=== PATIENT | male | born 1970 | race Hispanic/Latino ===

== ENCOUNTER 2020-11-08 13:49 | Emergency (ER) | payer SELFPAY ==
[2020-11-08] MEDS ORDERED: NA CHLORIDE 0.9% 1,000 ML ONE ×2 (14:54→18:27)
[2020-11-08 14:59] LABS: Absolute Lymphocytes (CBC) 1.9 K/uL (0.7-4.9); Basophils % 0.6 % (0-1.3); Hematocrit 51.3 % (39.6-49.0); Lymphocytes % 18.1 % (15.3-44.8); MPV 8.4 fL (7.6-11.3); RBC Red Blood Cell Count 5.42 M/uL (4.33-5.43)
[2020-11-08 15:12] LABS: Protime INR 1.01
--- NOTE | 2020-11-08 15:12 | RAD REPORT ---
EXAM DESCRIPTION: CT - Head Brain Wo Cont - 11/08/2020 2:56 pm CLINICAL HISTORY: Blurred vision COMPARISON: None TECHNIQUE: Computed axial tomography of the head was obtained. IV contrast was not requested. All CT scans are performed using dose optimization technique as appropriate and may include automated exposure control or mA/KV adjustment according to patient size. FINDINGS: An intracranial bleed is not seen . The ventricles are normal in caliber. No extra-axial fluid collection is noted. Some of the images are degraded by motion artifact. Opacification right maxillary sinus indicative of sinusitis IMPRESSION: No acute intracranial abnormality is seen. If patient's symptoms persist MRI of the bra in would be recommended.
--- NOTE | 2020-11-08 15:12 | RAD REPORT ---
EXAM DESCRIPTION: Marcelina Single View11/08/2020 3:01 pm CLINICAL HISTORY: Syncope COMPARISON: none FINDINGS: The lungs appear clear of acute infiltrate. The heart is normal size IMPRESSION: No acute abnormalities displayed
[2020-11-08 15:24] LABS: ALT/SGPT 47 U/L (12-78); AST/SGOT 51 U/L (15-37); Albumin 4.5 g/dL (3.4-5.0); Alkaline Phosphatase 137 U/L (45-117); BUN Blood Urea Nitrogen 14 mg/dL (7-18); Bicarbonate 21 mmol/L (21-32); Bilirubin Direct 0.2 mg/dL (0-0.2); Bilirubin Total 0.7 mg/dL (0.2-1.0); Creatine Phosphokinase 217 U/L (39-308); Glucose Level 103 mg/dL (74-106); Magnesium 2.2 mg/dL (1.8-2.4); NT PRO-BNP 38 pg/mL (<125); Potassium 3.4 mmol/L (3.5-5.1); Protein, Total 8.8 g/dL (6.4-8.2); Sodium Level 134 mmol/L (136-145); Troponin (Emerg Dept Use Only) < 0.02 ng/mL (0.0-0.045)
[2020-11-08] MEDS ORDERED: DIAZEPAM 10 MG/2 ML INJ SYRINGE ONE (17:24)
[2020-11-08] MEDS ORDERED: FLUORESCEIN SODIUM 1 MG/WRAP ONE (18:47)
--- NOTE | 2020-11-08 19:38 | RAD REPORT ---
EXAM DESCRIPTION: MRI - Brain Wo Cont - 11/08/2020 7:25 pm CLINICAL HISTORY: Blurred vision COMPARISON: Head CT November 08, 2020 TECHNIQUE: Axial, sagittal, and coronal magnetic images of the brain were obtained. Contrast was not requested FINDINGS: Some of the images are degraded by patient motion artifact No abnormal signal is present within the brain. Diffusion-weighted/ADC mapping does not reveal evidence of acute infarction. The ventricles are normal caliber. An extra-axial fluid collection is not present Signal throughout right maxillary sinus compatible with sinusitis. IMPRESSION: No acute intracranial abnormality is displayed
--- NOTE | 2020-11-08 20:23 | EDPHYS ---
Physician Documentation [facility] Name: Raheem Stanley Age: 50 yrs Sex: Male : 1970 Arrival Date: 11/08/2020 Time: 13:51 Bed 7 Private MD: ED Physician Seymour Gee HPI: 11/08 15:23 This 50 yrs old Male presents to ER via Wheelchair with complaints of Near jmm Syncope, Blurred Vision, Shortness Of Breath. 15:23 The patient has experienced near-syncope. Onset: The symptoms/episode began/occurred jmm acutely, just prior to arrival. Associated injury: The patient did not suffer any apparent associated injury. Patient complains of dizziness, blurred vision. 20:19 Associated signs and symptoms: Pertinent positives: dizziness, Pertinent negatives: jmm abdominal pain. Historical: - Allergies: 13:58 No Known Allergies; tw2 - Home Meds: 13:58 Bactrim DS 800-160 mg Oral tab 1 tab 4 times per day [Active]; tw2 - PMHx: 14:21 HIV; sv - PSHx: 13:58 None; tw2 - Immunization history:: Adult Immunizations. - Social history:: Smoking status: Patient reports the use of cigarette tobacco products, i cigarette, Patient uses alcohol, claims drinking about a 6 pack/day. street drugs, marijuana, "once every 2 days". ROS: 20:19 Constitutional: Negative for fever, chills, and weight loss, Cardiovascular: Negative jmm for chest pain, palpitations, and edema. 20:19 Respiratory: Positive for shortness of breath. 20:19 Neuro: Positive for dizziness. 20:19 All other systems are negative. Exam: 15:23 ECG was reviewed by the Attending Physician. jmm 20:19 Constitutional: This is a well developed, well nourished patient who is awake, alert, jmm and in no acute distress. Head/Face: atraumatic. Eyes: EOMI, no conjunctival erythema appreciated ENT: Moist Mucus Membranes 20:19 Neck: Trachea midline, Supple Chest/axilla: Normal chest wall appearance and motion. Cardiovascular: Regular rate and rhythm. No edema appreciated Respiratory: Normal respirations, no respiratory distress appreciated Abdomen/GI: Non distended, soft Back: Normal ROM Skin: General appearance color normal MS/ Extremity: Moves all extremities, no obvious deformities appreciated, no edema noted to the lower extremities Neuro: Awake and alert, normal gait Psych: Behavior is normal, Mood is normal, Patient is cooperative and pleasant 20:19 Eyes: Pupils: constricted, bilaterally. Vital Signs: 13:54 Pulse 118; Resp 17; Temp 98.3(O); Pulse Ox 97% on R/A; Weight 77.11 kg (R); tw2 14:21 BP 133 / 103; Pulse 109 MON; Resp 12; Pulse Ox 95% ; sv 14:49 BP 127 / 89; Pulse 97; Resp 20; Pulse Ox 100% ; sv 15:45 BP 124 / 93; Pulse 96; Resp 13; Pulse Ox 98% ; sv 16:30 BP 121 / 91; Pulse 90; Resp 15; Pulse Ox 97% ; sv 17:15 BP 123 / 84; Pulse 87; Resp 21; Pulse Ox 100% on R/A; sv 18:11 BP 115 / 90; Pulse 85; Resp 16; Pulse Ox 100% ; sv 20:09 BP 123 / 92; Pulse 89; Resp 18; Pulse Ox 100% on R/A; mg2 14:21 Sinus tachycardia sv MDM: 14:22 Patient medically screened. [facility] 20:20 Data reviewed: vital signs, nurses notes. Counseling: I had a detailed discussion with [facility] the patient and/or guardian regarding: the historical points, exam findings, and any diagnostic results supporting the discharge/admit diagnosis, lab results, radiology results, the need for outpatient follow up, to return to the emergency department if symptoms worsen or persist or if there are any questions or concerns that arise at home. ED course: Imaging studies, labs unremarkable. Patient states blurred vision has relieved. Patient advised to follow up with pcp and otherwise given strict return precautions. patient understood and agrees with the plan of care. . 11/08 14:32 Order name: Basic Metabolic Panel [facility] 11/08 14:32 Order name: CBC with Diff [facility] 11/08 14:32 Order name: LFT's [facility] 11/08 14:32 Order name: Magnesium [facility] 11/08 14:32 Order name: NT PRO-BNP [facility] 11/08 14:32 Order name: PT-INR; Complete Time: 15:14 [facility] 11/08 14:32 Order name: Troponin (emerg Dept Use Only); Complete Time: 15:24 [facility]/04 14:32 Order name: CPK; Complete Time: 15:24 jmm 11/08 14:32 Order name: Basic Metabolic Panel; Complete Time: 15:24 EDMS 11/08 14:32 Order name: CBC with Automated Diff; Complete Time: 15:12 EDMS 11/08 14:32 Order name: Liver (Hepatic) Function; Complete Time: 15:24 EDMS 11/08 14:32 Order name: Magnesium; Complete Time: 15:24 EDMS 11/08 14:33 Order name: NT PRO-BNP; Complete Time: 15:24 EDMS 11/08 14:32 Order name: XRAY Chest (1 view); Complete Time: 15:13 jmm 11/08 14:32 Order name: EKG; Complete Time: 14:33 m 11/08 14:32 Order name: Cardiac monitoring; Complete Time: 14:48 jmm 11/08 14:32 Order name: EKG - Nurse/Tech; Complete Time: 14:48 m 11/08 14:32 Order name: IV Saline Lock; Complete Time: 14:48 m 11/08 14:32 Order name: Labs collected and sent; Complete Time: 14:48 jmm 11/08 14:32 Order name: O2 Per Protocol; Complete Time: 14:48 jmm 11/08 14:32 Order name: O2 Sat Monitoring; Complete Time: 14:48 m 04 14:32 Order name: CT Head Brain wo Cont; Complete Time: 15:13 m 04 16:05 Order name: MRI - Brain Wo Cont; Complete Time: 19:40 jmm EC:23 Rate is 98 beats/min. Rhythm is regular. QRS [place] is Normal. NC interval is normal. QRS jmm interval is normal. QT interval is normal. No Q waves. T waves are Normal. No ST changes noted. Reviewed by me. Administered Medications: 14:40 Drug: NS 0.9% 1000 ml Route: IV; Rate: 1 bolus; Site: right forearm; sv 17:11 Drug: Valium (diazepam) 5 mg Route: IVP; Site: right forearm; sv 18:10 Follow up: Response: No adverse reaction sv 18:10 Drug: NS 0.9% 1000 ml Route: IV; Rate: 1000 ml; Site: right forearm; sv 20:20 Follow up: Response: No adverse reaction; IV Status: Completed infusion; IV Intake: ad5 1000ml 18:30 Drug: Fluorescein Strip 1 strip {Note: given to Damien [facility] for eye exam.} Route: sv Ophthalmic; Site: both eyes; Disposition: 11/09 11:23 Co-signature as Attending Physician, Seymour Gee MD I agree with the assessment and [facility] plan of care. Disposition: 11/08/20 20:23 Discharged to Home. Impression: Syncope and collapse. - Condition is Stable. - Discharge Instructions: Blurred Vision, Adult, Syncope. - Medication Reconciliation Form, Thank You Letter, Antibiotic Education, Prescription Opioid Use form. - Follow up: Private Physician; When: 2 - 3 days; Reason: Recheck today's complaints, Continuance of care, Re-evaluation by your physician. Signatures: Dispatcher [employer] Apryl Stephens RN Seymour Carr MD MD cha Mickail, Joel, PA PA jmm Wise, Tara RN RN 2 Amilcar [place] ad5 Corrections: (The following items were deleted from the chart) 11/08 14:21 13:58 PMHx: None; tw2 20:32 20:23 11/08/2020 20:23 Discharged to Home. Impression: Syncope and collapse. Condition ad5 is Stable. Forms are Medication Reconciliation Form, Thank You Letter, Antibiotic Education, Prescription Opioid Use. Follow up: Private Physician; When: 2 - 3 days; Reason: Recheck today's complaints, Continuance of care, Re-evaluation by your physician. scott
--- NOTE | 2020-11-08 20:23 | ER ---
Nurse's Notes [facility] Name: Raheem Stanley Age: 50 yrs Sex: Male : 1970 Arrival Date: 11/08/2020 Time: 13:51 Bed 7 Private MD: Diagnosis: Syncope and collapse Presentation: 11/08 13:54 Chief complaint: Patient states: i started hurting after i tried to pull a tooth out. 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 he said he was having trouble with his vision on the way here. he said he was having trouble with a tooth and tried to pull it out. Coronavirus screen: nausea. Ebola Screen: Patient denies travel to an Ebola-affected area in the 21 days before illness onset. Initial Sepsis Screen: Does the patient meet any 2 criteria? No. Patient's initial sepsis screen is negative. Does the patient have a suspected source of infection? Yes: Other: tooth infection. Risk Assessment: Do you want to hurt yourself or someone else? Patient reports no desire to harm self or others. Onset of symptoms was November 08, 2020. 13:54 Method Of Arrival: Wheelchair tw2 13:54 Acuity: ESTER 2 tw2 Triage Assessment: 13:58 General: Appears uncomfortable, unkempt, Behavior is cooperative, appropriate for age, tw2 quiet. Pain: Complains of pain in right buccal mucosa. Respiratory: Reports shortness of breath "after being in the heat and i tried to pull 2 teeth out and they broke off" Onset: The symptoms/episode began/occurred suddenly, the patient has mild shortness of breath. Historical: - Allergies: 13:58 No Known Allergies; tw2 - Home Meds: 13:58 Bactrim DS 800-160 mg Oral tab 1 tab 4 times per day [Active]; tw2 - PMHx: 14:21 HIV; sv - PSHx: 13:58 None; tw2 - Immunization history:: Adult Immunizations. - Social history:: Smoking status: Patient reports the use of cigarette tobacco products, i cigarette, Patient uses alcohol, claims drinking about a 6 pack/day. street drugs, marijuana, "once every 2 days". Screenin:21 Abuse screen: Denies threats or abuse. Denies injuries from another. Nutritional sv screening: No deficits noted. Tuberculosis screening: No symptoms or risk factors identified. Fall Risk None identified. Assessment: 14:23 General: Appears in no apparent distress. uncomfortable, slender, well developed, sv Behavior is calm, cooperative, appropriate for age. Pain: Complains of pain in mouth Pain currently is 8 out of 10 on a pain scale. Neuro: Level of Consciousness is awake, alert, obeys commands, Oriented to person, place, time, situation, Moves all extremities. Full function Gait is steady, Speech is normal, Reports blurred vision dizziness. Cardiovascular: Patient's skin is warm and dry. Rhythm is sinus tachycardia. Respiratory: Reports shortness of breath Airway is patent Respiratory effort is even, unlabored, Respiratory pattern is regular, symmetrical. Derm: Skin is pink, warm \\T\\ dry. 14:40 Reassessment: Patient appears in no apparent distress at this time. No changes from sv previously documented assessment. Patient and/or family updated on plan of care and expected duration. Pain level reassessed. Patient is alert, oriented x 3, equal unlabored respirations, skin warm/dry/pink. 16:38 Reassessment: Patient appears in no apparent distress at this time. No changes from sv previously documented assessment. Patient and/or family updated on plan of care and expected duration. Pain level reassessed. Patient is alert, oriented x 3, equal unlabored respirations, skin warm/dry/pink. Pt asked to give a urine sample, unable to give one at this time. 16:45 Reassessment: I called MRI and they will get him in about an hour and a half. sv 18:10 Reassessment: Patient appears in no apparent distress at this time. Patient and/or sv family updated on plan of care and expected duration. Pain level reassessed. Patient is alert, oriented x 3, equal unlabored respirations, skin warm/dry/pink. Pt asked to give a urine sample, unable to at this time. NS 1L bolus started. 19:16 Reassessment: patient still in MRI. mg2 20:09 Reassessment: Patient appears in no apparent distress at this time. Patient and/or mg2 family updated on plan of care and expected duration. Pain level reassessed. Patient is alert, oriented x 3, equal unlabored respirations, skin warm/dry/pink. 20:28 Reassessment: Pt denies new or worsening c/o. Reports improvement in s/s at this time. ad5 Denies pain. AAOx4. Speech clear and appropriate. Resp with ease. Skin pwd, cap refill brisk. Friend at bedside. NAD noted upon discharge. Vital Signs: 13:54 Pulse 118; Resp 17; Temp 98.3(O); Pulse Ox 97% on R/A; Weight 77.11 kg (R); tw2 14:21 BP 133 / 103; Pulse 109 MON; Resp 12; Pulse Ox 95% ; sv 14:49 BP 127 / 89; Pulse 97; Resp 20; Pulse Ox 100% ; sv 15:45 BP 124 / 93; Pulse 96; Resp 13; Pulse Ox 98% ; sv 16:30 BP 121 / 91; Pulse 90; Resp 15; Pulse Ox 97% ; sv 17:15 BP 123 / 84; Pulse 87; Resp 21; Pulse Ox 100% on R/A; sv 18:11 BP 115 / 90; Pulse 85; Resp 16; Pulse Ox 100% ; sv 20:09 BP 123 / 92; Pulse 89; Resp 18; Pulse Ox 100% on R/A; mg2 14:21 Sinus tachycardia sv ED Course: 13:51 Patient arrived in ED. as 13:56 Triage completed. tw2 13:58 Arm band placed on. tw2 14:11 Damien Bell PA is PHCP. [facility] 14:11 Seymour Gee MD is Attending Physician. [facility] 14:17 Apryl Reyes, FORTINO is Primary Nurse. sv 14:21 Patient has correct armband on for positive identification. Placed in gown. Bed in low sv position. Call light in reach. monitoring tech on. Pulse ox on. NIBP on. Door closed. Head of bed elevated. 14:40 Inserted saline lock: 18 gauge in right forearm, using aseptic technique. Blood sv collected. Flushed right forearm with 5 ml normal saline. 14:48 Basic Metabolic Panel Sent. sv 14:48 CBC with Diff Sent. sv 14:48 LFT's Sent. sv 14:49 Magnesium Sent. sv 14:49 NT PRO-BNP Sent. sv 14:49 X-ray(s) taken. sv 14:56 CT Head Brain wo Cont In Process Unspecified. EDMS 15:01 XRAY Chest (1 view) In Process Unspecified. EDMS 18:24 Awaiting: MRI. sv 18:31 Assist provider with eye exam of both eyes. using fluorescein stain, Performed by Damien [facility] Patient tolerated well. 19:03 Report given to Chandra FREITAS and Julissa FREITAS. sv 19:05 MRI - Brain Wo Cont In Process Unspecified. EDMS 19:10 Primary Nurse role handed off by Apryl Reyes RN sv 20:09 Chandra Clarke, RN is Primary Nurse. mg2 20:30 IV discontinued, intact, bleeding controlled, No redness/swelling at site. Pressure ad5 dressing applied. Administered Medications: 14:40 Drug: NS 0.9% 1000 ml Route: IV; Rate: 1 bolus; Site: right forearm; sv 17:11 Drug: Valium (diazepam) 5 mg Route: IVP; Site: right forearm; sv 18:10 Follow up: Response: No adverse reaction sv 18:10 Drug: NS 0.9% 1000 ml Route: IV; Rate: 1000 ml; Site: right forearm; sv 20:20 Follow up: Response: No adverse reaction; IV Status: Completed infusion; IV Intake: ad5 1000ml 18:30 Drug: Fluorescein Strip 1 strip {Note: given to Damien [facility] for eye exam.} Route: sv Ophthalmic; Site: both eyes; Intake: 20:20 IV: 1000ml; Total: 1000ml. ad5 Outcome: 20:23 Discharge ordered by . alexsandra 20:29 Discharged to home ambulatory, with friend. ad5 20:29 Condition: stable 20:29 Discharge instructions given to patient, Instructed on discharge instructions, follow up and referral plans. Demonstrated understanding of instructions, follow-up care. 20:32 Patient left the ED. ad5 Signatures: Dispatcher [employer] EDMS Apryl Reyes RN RN sv Mickail, Joel, PA PA jmm Martinez, Amelia as Wise, Tara, RN RN tw2 Chandra Clarke, FORTINO RN Amilcar Day ad5 Corrections: (The following items were deleted from the chart) 14:21 13:58 PMHx: None; tw2
[2020-11-08 20:44] VITALS: TEMP 98.3
[2020-11-08 20:50] VITALS: O2SAT 100
[2020-11-08 20:53] VITALS: BP 123/92
--- NOTE | 2020-11-10 07:24 | EKG ---
Test Date: 2020-11-08 Test Time: 14:39:30 Gasoline Service Attendant: SV MEASUREMENT RESULTS: Intervals: Rate: 98 TX: 164 QRSD: 84 QT: 364 QTc: 464 Cameron: P: 63 TX: 164 QRS: 57 T: 49 INTERPRETIVE STATEMENTS: Normal sinus rhythm Normal ECG No previous ECG available for comparison Electronically Signed On 11-10-20 07:18:41 CDT by Solitario Stcak
== END 2020-11-08 20:32 | disposition home or self-care (01) ==
LOC: ER 13:49
DX: R55 Syncope and collapse (principal); F17.210 Nicotine dependence, cigarettes, uncomplicated; Z21 Asymptomatic human immunodeficiency virus [HIV] infection status
CPT/HCPCS: 36415; 70450; 70551; 71045; 80048; 80076; 82550; 83735; 83880; 84484; 85025; 85610; 93005; 96361; 96374; 99285; J3360; J7030

== ENCOUNTER 2021-05-16 15:01 | Emergency (ER) | payer SELFPAY ==
[2021-05-16] MEDS ORDERED: GLUCAGON 1 MG/VIAL ONE (15:06)
[2021-05-16] MEDS ORDERED: ONDANSETRON 4 MG/2 ML VIAL ONE (15:13)
[2021-05-16 15:23] LABS: Absolute Lymphocytes (CBC) 1.9 K/uL (0.7-4.9); Basophils % 0.9 % (0-1.3); Lymphocytes % 25.8 % (15.3-44.8); MPV 7.6 fL (7.6-11.3); RBC Red Blood Cell Count 5.01 M/uL (4.33-5.43)
[2021-05-16 15:54] LABS: ALT/SGPT 23 U/L (12-78); AST/SGOT 29 U/L (15-37); Albumin 3.9 g/dL (3.4-5.0); Alkaline Phosphatase 139 U/L (45-117); BUN Blood Urea Nitrogen 8 mg/dL (7-18); Bicarbonate 24 mmol/L (21-32); Bilirubin Direct < 0.1 mg/dL (0-0.2); Bilirubin Total 0.4 mg/dL (0.2-1.0); Glucose Level 97 mg/dL (74-106); Lipase 60 U/L (73-393); Potassium 3.8 mmol/L (3.5-5.1); Sodium Level 139 mmol/L (136-145)
--- NOTE | 2021-05-16 17:07 | RAD REPORT ---
EXAM DESCRIPTION: CT - Soft Tissue Neck W/Contr - 05/16/2021 4:36 pm CLINICAL HISTORY: FORIEGN BODY COMPARISON: No comparisons TECHNIQUE: During dynamic enhancement using 100 milliliters nonionic IV contrast, axial 5 millimeter thick images of the neck were obtained. All CT scans are performed using dose optimization technique as appropriate and may include automated exposure control or mA/KV adjustment according to patient size. FINDINGS: Intracranial portion the examination is unremarkable. Mastoid air cells are clear. Chronic right maxillary sinusitis changes are present. There is a irregular contour to the weaver of t he maxillary sinus on the right. Patient has advanced dental decay with areas of lucent bone and twos decay in proximity to the right maxillary sinus floor in addition to elsewhere in the mandible and m axilla. No kendrick bone destruction or communication between the teeth and sinus. Patient has nonspecif ic small bilateral cervical lymph nodes. No pharyngeal mucosal mass or asymmetry. No tonsil, tongue base or soft palate abnormality. Epiglotti s is normal. No vocal cord abnormality seen. There is ingested food filling the upper thoracic esophagus only partially visualized on this study. This is probably the symptomatic ingested food detailed in the history. No abnormality in the subglot tic airway. 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 No acute bone finding. IMPRESSION: Ingested food material fills the lumen of the upper thoracic esophagus. The esophagus is only partially imaged on this study. No abnormality in the subglottic airway. Advanced dental decay with chronic right maxillary sinusitis. There is irregular contour to the bone along the floor of the right maxillary sinus but no kendrick destruction of bone or communication betwee n the sinus and the teeth.
--- NOTE | 2021-05-16 17:13 | EDPHYS ---
Physician Documentation [facility] Name: Raheem Stanley Age: 50 yrs Sex: Male : 1970 Arrival Date: 05/16/2021 Time: 15:02 Bed 6 Private MD: ED Physician Aron Grullon HPI: 05/16 15:07 This 50 yrs old Male presents to ER via Ambulatory with complaints of Foreign jmm Body In Throat. 15:07 The patient presents with a foreign body sensation in the throat. Onset: The jmm symptoms/episode began/occurred acutely, just prior to arrival. Modifying factors: The symptoms are alleviated by nothing, the symptoms are aggravated by fluids. Associated signs and symptoms: Pertinent positives: shortness of breath. This is a 50-year-old male with history of HIV the presents emerged department with vomiting, difficulty in taking fluids after eating a piece of meat. This occurred just prior to arrival.. Historical: - Allergies: 15:05 No Known Allergies; aa5 - PMHx: 15:05 HIV; aa5 - Immunization history:: Client reports having NOT received the Covid vaccine. - Social history:: Smoking status: Patient denies any tobacco usage or history of. ROS: 15:07 Constitutional: Negative for fever, chills, and weight loss. jmm 15:07 ENT: Positive for foreign body sensation. 15:07 Abdomen/GI: Positive for vomiting. 15:07 All other systems are negative. Exam: 15:07 Constitutional: This is a well developed, well nourished patient who is awake, alert, jmm and in no acute distress. Head/Face: atraumatic. Eyes: EOMI, no conjunctival erythema appreciated 15:07 Chest/axilla: Normal chest wall appearance and motion. Cardiovascular: Regular rate and rhythm. No edema appreciated Respiratory: Normal respirations, no respiratory distress appreciated Abdomen/GI: Non distended, soft Back: Normal ROM Skin: General appearance color normal MS/ Extremity: Moves all extremities, no obvious deformities appreciated, no edema noted to the lower extremities Neuro: Awake and alert, normal gait Psych: Behavior is normal, Mood is normal, Patient is cooperative and pleasant 15:07 ENT: Posterior pharynx: is normal. Vital Signs: 15:19 BP 145 / 96; Pulse 77; Resp 17; Temp 97.8; Pulse Ox 100% on R/A; jt3 17:37 BP 148 / 91; Pulse 79; Resp 16; Pulse Ox 100% ; ll1 MDM: 15:07 Patient medically screened. [facility] 16:23 Data reviewed: vital signs, nurses notes. ED course: Attempted to contact Dr. Hall at [facility] 1530, 1600, and 1620. Currently no response. 17:10 Counseling: I had a detailed discussion with the patient and/or guardian regarding: the [facility] historical points, exam findings, and any diagnostic results supporting the discharge/admit diagnosis, lab results, the need for outpatient follow up, to return to the emergency department if symptoms worsen or persist or if there are any questions or concerns that arise at home. ED course: States feeling much better. Able to tolerate p.o. in the ED. Advised follow-up with PCP and otherwise given strict return precautions if symptoms return.. 05/16 15:07 Order name: Basic Metabolic Panel [facility] 05/16 15:07 Order name: CBC with Diff [facility] 05/16 15:07 Order name: Hepatic Function; Complete Time: 16:00 [facility] 05/16 15:07 Order name: Lipase; Complete Time: 16:00 [facility] 05/16 15:07 Order name: Basic Metabolic Panel; Complete Time: 16:00 [facility] 05/16 15:07 Order name: CBC with Automated Diff; Complete Time: 15:32 [facility] 05/16 15:07 Order name: IV Saline Lock; Complete Time: 15:09 [facility] 05/16 15:07 Order name: Labs collected and sent; Complete Time: 15:10 [facility] 05/16 15:08 Order name: CT Soft Tissue Neck W/contr; Complete Time: 17:12 [facility] Administered Medications: 15:10 Drug: GlucaGen (glucagon) 1 mg Route: IVP; Site: right antecubital; jt3 16:07 Follow up: Response: No adverse reaction ll1 15:19 Drug: Zofran (Ondansetron) 4 mg Route: IVP; Site: right antecubital; jt3 16:07 Follow up: Response: No adverse reaction ll1 Disposition: 17:40 Co-signature as Attending Physician, Aron Grullon MD. pkl Disposition Summary: 05/16/21 17:12 Discharge Ordered Location: Home [facility] Condition: Stable [facility] Diagnosis - Foreign Body Sensation of the Throat - Resolved [facility] Followup: [facility] - With: Harley Hall MD - When: 2 - 3 days - Reason: Recheck today's complaints, Continuance of care, Re-evaluation by your physician Discharge Instructions: - Discharge Summary Sheet [facility] - Swallowed Foreign Body, Adult [facility] Forms: - Medication Reconciliation Form [facility] - Thank You Letter [facility] - Antibiotic Education alexsandra - Prescription Opioid Use alexsandra Signatures: Dispatcher [employer] Aron Aggarwal MD MD pkl Mickail, Joel, PA PA Donna Aguirre, RN RN aa5 Frank Patel RN RN jt3 Jackie Sahu RN ll1
--- NOTE | 2021-05-16 17:13 | ER ---
Nurse's Notes 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 15:04 Risk Assessment: Do you want to hurt yourself or someone else? Patient reports no aa5 desire to harm self or others. 15:04 Acuity: ESTER 2 aa5 15:04 Coronavirus screen: At this time, the client does not indicate any symptoms associated aa5 with coronavirus-19. Ebola Screen: No symptoms or risks identified at this time. 15:04 Method Of Arrival: Ambulatory aa5 15:04 Onset of symptoms was May 16, 2021. aa5 17:38 Initial Sepsis Screen: Does the patient meet any 2 criteria? No. Patient's initial ll1 sepsis screen is negative. Does the patient have a suspected source of infection? Yes: Other: food bolus in throat. Triage Assessment: 15:05 General: Appears distressed, Behavior is cooperative, appropriate for age. Pain: ll1 Complains of pain in throat Quality of pain is described as aching. Neuro: No deficits noted. Cardiovascular: No deficits noted. Respiratory: Airway is compromised Trachea midline Respiratory effort is labored, Respiratory pattern is regular, Breath sounds are clear bilaterally. GI: Abdomen is flat, Bowel sounds present X 4 quads. Reports food bolus (meat) stuck in throat area. Talking and breathing on his own, but trying to vomit. Historical: - Allergies: 15:05 No Known Allergies; aa5 - PMHx: 15:05 HIV; aa5 - Immunization history:: Client reports having NOT received the Covid vaccine. - Social history:: Smoking status: Patient denies any tobacco usage or history of. Screenin:38 Abuse screen: Denies threats or abuse. Nutritional screening: No deficits noted. ll1 Tuberculosis screening: No symptoms or risk factors identified. Fall Risk IV access (20 points). Gait- Weak (10 pts.). Total Fernandez Fall Scale indicates Low Risk Score (25-44 pts). Fall prevention measures have been instituted. Side Rails Up X 2 Frequent Obs/Assesments occuring As available Patient and Family Educated on Fall Prevention Program and strategies. Assessment: 16:00 Reassessment: No changes from previously documented assessment. Patient and/or family ll1 updated on plan of care and expected duration. Pain level reassessed. Patient is alert, oriented x 3, equal unlabored respirations, skin warm/dry/pink. 17:00 Reassessment: No changes from previously documented assessment. Patient and/or family ll1 updated on plan of care and expected duration. Pain level reassessed. Patient is alert, oriented x 3, equal unlabored respirations, skin warm/dry/pink. Patient states feeling better. Vital Signs: 15:19 BP 145 / 96; Pulse 77; Resp 17; Temp 97.8; Pulse Ox 100% on R/A; jt3 17:37 BP 148 / 91; Pulse 79; Resp 16; Pulse Ox 100% ; ll1 ED Course: 15:02 Patient arrived in ED. mr 15:06 Jackie Sahu, FORTINO is Primary Nurse. ll1 15:06 Damien Bell PA is PHCP. jmm 15:06 Aron Grullon MD is Attending Physician. m 15:06 Arm band placed on Patient placed in an exam room, on a stretcher. ll1 15:09 Triage completed. aa5 15:14 Initial lab(s) drawn, by mn, sent to lab. Inserted saline lock: 20 gauge in right em1 antecubital area, using aseptic technique. Blood collected. 16:00 Patient has correct armband on for positive identification. Bed in low position. Call ll1 light in reach. Side rails up X 1. conveyor monitor on. Pulse ox on. NIBP on. 16:36 CT Soft Tissue Neck W/contr In Process Unspecified. EDMS 17:11 Harley Hall MD is Referral Physician. [place] 17:37 No provider procedures requiring assistance completed. IV discontinued, intact, ll1 bleeding controlled, No redness/swelling at site. Pressure dressing applied. Administered Medications: 15:10 Drug: GlucaGen (glucagon) 1 mg Route: IVP; Site: right antecubital; jt3 16:07 Follow up: Response: No adverse reaction 1 15:19 Drug: Zofran (Ondansetron) 4 mg Route: IVP; Site: right antecubital; jt3 16:07 Follow up: Response: No adverse reaction 1 Outcome: 17:12 Discharge ordered by . scott 17:38 Discharged to home ambulatory. 1 17:38 Condition: stable 17:38 Discharge instructions given to patient, Instructed on discharge instructions, follow up and referral plans. Demonstrated understanding of instructions, follow-up care. 17:39 Patient left the ED. 1 Signatures: Dispatcher [employer] EDMS Damien Bell PA PA jmm Neri, Velvet Gandhi, Jay em1 Donna Pearl, RN RN aa5 Jackie Sahu RN RN ll1 Frank Patel RN RN jt3
[2021-05-16 17:54] VITALS: TEMP 97.8; O2SAT 100
[2021-05-16 17:55] VITALS: BP 148/91
--- OUTSIDE RECORDS SUMMARY | 2021-05-20 18:15 | XMS REPORT | Continuity of Care Document ---
:1970 Author Organization [facility] t Address [facility] [place] [address] Care Team Providers Name Role Phone RADIOLOGY Attending Clinician Unavailable Problems This patient has no known problems. Allergies, Adverse Reactions, Alerts Allergy Allergy Status Severity Reaction(s) Onset Inactive Treating Comm ents Source Name Type Date Date Clinician NO KNOWN Drug Active [facility] ALLERGIE Class [facility] Medications This patient has no known medications. Procedures This patient has no known procedures. Encounters Start End Encounter Admission Attending Care Care Encounter Source Date/Time Date/Time Type Type Clinicians Facility Department ID 2019-12-02 2019-12-02 Outpatient R RADIOLOGY [facility] [id number] [facility] 12:40:06 12:40:06 [facility] Results This patient has no known results.
== END 2021-05-16 17:39 | disposition home or self-care (01) ==
LOC: ER 15:01
DX: R09.89 Other specified symptoms and signs involving the circulatory and respiratory systems (principal)
CPT/HCPCS: 36415; 70491; 80048; 80076; 83690; 85025; 96374; 96375; 99284; J1610; J2405; Q9967

== ENCOUNTER 2021-05-17 12:02 | Inpatient (IN) | payer SELFPAY ==
--- NOTE | 2021-05-17 13:01 | EDPHYS ---
Physician Documentation [facility] Name: Raheem Stanley Age: 50 yrs Sex: Male : 1970 Arrival Date: 05/17/2021 Time: 12:04 Bed 25 Private MD: ED Physician Wan Myers HPI: 05/17 12:56 This 50 yrs old Male presents to ER via Ambulatory with complaints of ma2 Choked/Choking. 12:56 This 50 yrs old Male presents to ER via Ambulatory with complaints of ma2 dysphagia, can not swallow . 12:56 The patient presents to the emergency department with nausea, vomiting. Onset: The ma2 symptoms/episode began/occurred suddenly, 1 day(s) ago. Possible causes: Patient is vomiting, unable to swallow since yesterday he had food bolus impaction obstruction in the esophagus, this happened yesterday he presented to the ER CT showed food bolus esophageal obstruction, however he wanted to go home and wait to see if it passed. However he is still unable to swallow solids or liquid so decided to present to the ER again. Associated signs and symptoms: Pertinent negatives: belching, dysuria, flatulence, hematuria. Severity of symptoms: At their worst the symptoms were moderate in the emergency department the symptoms are unchanged. The patient has not experienced similar symptoms in the past. Historical: - Allergies: 12:27 No Known Allergies; vg1 - Home Meds: 12:27 HIV medication [Active]; vg1 - PMHx: 12:27 HIV; vg1 - Immunization history:: Client reports having NOT received the Covid vaccine. - Social history:: Smoking status: Patient reports the use of cigarette tobacco products, 2 cigarettes/ day, Patient/guardian denies using alcohol, street drugs, The patient lives with family. - Family history:: not pertinent. ROS: 12:56 Constitutional: Negative for fever, chills, and weight loss. ma2 12:56 All other systems are negative. Exam: 12:56 Constitutional: This is a well developed, well nourished patient who is awake, alert, ma2 and in no acute distress. Head/Face: Normocephalic, atraumatic. Eyes: Pupils equal round and reactive to light, extra-ocular motions intact. Lids and lashes normal. Conjunctiva and sclera are non-icteric and not injected. Cornea within normal limits. Periorbital areas with no swelling, redness, or edema. ENT: Nares patent. No nasal discharge, no septal abnormalities noted. Tympanic membranes are normal and external auditory canals are clear. Oropharynx with no redness, swelling, or masses, exudates, or evidence of obstruction, uvula midline. Mucous membranes moist. Neck: Trachea midline, no thyromegaly or masses palpated, and no cervical lymphadenopathy. Supple, full range of motion without nuchal rigidity, or vertebral point tenderness. No Meningismus. Chest/axilla: Normal chest wall appearance and motion. Nontender with no deformity. No lesions are appreciated. Cardiovascular: Regular rate and rhythm with a normal S1 and S2. No gallops, murmurs, or rubs. Normal PMI, no JVD. No pulse deficits. Respiratory: Lungs have equal breath sounds bilaterally, clear to auscultation and percussion. No rales, rhonchi or wheezes noted. No increased work of breathing, no retractions or nasal flaring. Abdomen/GI: Soft, non-tender, with normal bowel sounds. No distension or tympany. No guarding or rebound. No evidence of tenderness throughout. Back: No spinal tenderness. No costovertebral tenderness. Full range of motion. Skin: Warm, dry with normal turgor. Normal color with no rashes, no lesions, and no evidence of cellulitis. MS/ Extremity: Pulses equal, no cyanosis. Neurovascular intact. Full, normal range of motion. Neuro: Awake and alert, GCS 15, oriented to person, place, time, and situation. Cranial nerves II-XII grossly intact. Motor strength 5/5 in all extremities. Sensory grossly intact. Cerebellar exam normal. Normal gait. Vital Signs: 12:25 BP 133 / 102; Pulse 75; Resp 16; Temp 97.5; Pulse Ox 100% ; Weight 77.11 kg; Height 5 vg1 ft. 9 in. (175.26 cm); Pain 0/10; 12:57 BP 129 / 99; Pulse 71; Resp 18; Pulse Ox 100% on R/A; ld1 12:25 Body Mass Index 25.10 (77.11 kg, 175.26 cm) vg1 MDM: 12:31 Patient medically screened. ma2 12:56 Differential diagnosis: Esophageal foreign body obstruction, likely food bolus. I ma2 discussed with Dr. Shashi MAY and he accepted, will see the patient, he recommends to discuss with the data warehouse consultant for OR today. Data reviewed: vital signs, nurses notes. Counseling: I had a detailed discussion with the patient and/or guardian regarding: the historical points, exam findings, and any diagnostic results supporting the discharge/admit diagnosis, the presence of at least one elevated blood pressure reading (>120/80) during this emergency department visit, the need for further work-up and treatment in the hospital. Response to treatment: There is no appreciated change of the patient's symptoms at this time. 05/17 13:01 Order name: Basic Metabolic Panel [facility] 05/17 13:01 Order name: CBC with Diff [facility] 05/17 13:01 Order name: Hepatic Function [facility] 05/17 13:01 Order name: Lipase [facility] 05/17 13:01 Order name: PT-INR [facility] 05/17 13:01 Order name: COVID-19 SARS RT PCR (Document "Date of Onset" if Symptomatic) [facility] 05/17 13:01 Order name: IV Saline Lock; Complete Time: 13:26 pa2 05/17 13:01 Order name: Labs collected and sent; Complete Time: 13:26 ma2 Administered Medications: No medications were administered Disposition Summary: 05/17/21 13:00 Hospitalization Ordered Hospitalization Status: Inpatient Admission pa2 Provider: Harley Hall Condition: Stable ma2 Problem: new ma2 Symptoms: are unchanged ma2 Bed/Room Type: Standard [facility] Location: Telemetry/MedSurg (observation)(05/17/21 13:42) bd Room Assignment: (05/17/21 13:42) bd Diagnosis - Foreign body in esophagus ma2 Forms: - Medication Reconciliation Form ma2 - SBAR form ma2 Signatures: Dispatcher [employer] EDMS Letitia Jimenez Mohammad, MD MD ma2 Shaista Ortiz, RN RN vg1 Corrections: (The following items were deleted from the chart) 13:03 13:01 SARS-COV-2 RT PCR+MOL.LAB.BRZ ordered. EDMS EDMS 13:42 13:00 Operating Room ma2 bd 13:42 13:00 ma2 bd
--- NOTE | 2021-05-17 13:01 | ER ---
Nurse's Notes [facility] Name: Raheem Stanley Age: 50 yrs Sex: Male : 1970 Arrival Date: 05/17/2021 Time: 12:04 Bed 25 Private MD: Diagnosis: Foreign body in esophagus Presentation: 05/17 12:25 Chief complaint: Patient states: Pt was seen in ED yesterday for a piece of meat that vg1 was stuck in pt throat. States today is having trouble eating or drinking anything; states 'every time I try to drink something it comes right back up.'. Coronavirus screen: Vaccine status: Patient reports being unvaccinated. Client denies travel out of the [place] in the last 14 days. Ebola Screen: Patient negative for fever greater than or equal to 101.5 degrees Fahrenheit, and additional compatible Ebola Virus Disease symptoms. Initial Sepsis Screen: Does the patient meet any 2 criteria? No. Patient's initial sepsis screen is negative. Does the patient have a suspected source of infection? No. Patient's initial sepsis screen is negative. Risk Assessment: Do you want to hurt yourself or someone else? Patient reports no desire to harm self or others. Onset of symptoms was May 16, 2021. 12:25 Method Of Arrival: Ambulatory vg1 12:25 Acuity: ESTER 3 vg1 Triage Assessment: 12:27 General: Appears in no apparent distress. uncomfortable, Behavior is calm, cooperative. vg1 Pain: Denies pain. Historical: - Allergies: 12:27 No Known Allergies; vg1 - Home Meds: 12:27 HIV medication [Active]; vg1 - PMHx: 12:27 HIV; vg1 - Immunization history:: Client reports having NOT received the Covid vaccine. - Social history:: Smoking status: Patient reports the use of cigarette tobacco products, 2 cigarettes/ day, Patient/guardian denies using alcohol, street drugs, The patient lives with family. - Family history:: not pertinent. Screenin:57 Abuse screen: Denies threats or abuse. Denies injuries from another. Nutritional ld1 screening: No deficits noted. Tuberculosis screening: No symptoms or risk factors identified. Fall Risk None identified. Assessment: 12:57 General: Appears in no apparent distress. comfortable, Behavior is calm, cooperative, ld1 appropriate for age. Pain: Denies pain. Neuro: Level of Consciousness is awake, alert, obeys commands, Oriented to person, place, time, situation, Appropriate for age. Cardiovascular: Capillary refill < 3 seconds Patient's skin is warm and dry. Rhythm is regular. Respiratory: Reports Choking on food from yesterday. SpO2 100% upon arrival. Airway is patent Respiratory effort is even, unlabored, Respiratory pattern is regular, symmetrical. GI: Abdomen is flat, non-distended. : No signs and/or symptoms were reported regarding the genitourinary system. EENT: Throat is clear. Derm: No signs and/or symptoms reported regarding the dermatologic system. Musculoskeletal:. Musculoskeletal: No signs and/or symptoms reported regarding the musculoskeletal system. 13:26 Reassessment: OR team at bedside. Patient went with OR team for EEG. ld1 Vital Signs: 12:25 BP 133 / 102; Pulse 75; Resp 16; Temp 97.5; Pulse Ox 100% ; Weight 77.11 kg; Height 5 vg1 ft. 9 in. (175.26 cm); Pain 0/10; 12:57 BP 129 / 99; Pulse 71; Resp 18; Pulse Ox 100% on R/A; ld1 12:25 Body Mass Index 25.10 (77.11 kg, 175.26 cm) vg1 ED Course: 12:04 Patient arrived in ED. mr 12:27 Triage completed. vg1 12:27 Arm band placed on. vg1 12:31 Wan Myers MD is Attending Physician. ma2 12:48 Estella Sandoval RN is Primary Nurse. ld1 12:57 Patient has correct armband on for positive identification. Bed in low position. Call ld1 light in reach. Side rails up X2. athletic monitor on. Pulse ox on. NIBP on. Door closed. Noise minimized. Warm blanket given. 12:57 No provider procedures requiring assistance completed. ld1 13:00 Harley Hall MD is Hospitalizing Provider. ma2 13:26 COVID-19 SARS RT PCR (Document "Date of Onset" if Symptomatic) Sent. ld1 13:26 Inserted saline lock: 20 gauge in right antecubital area, using aseptic technique. ld1 Blood collected. Missed attempt(s): 20 gauge in right forearm. Administered Medications: No medications were administered Outcome: 13:00 Decision to Hospitalize by Provider. ma2 17:51 Patient left the ED. ld1 Signatures: Velvet He mr Wan Myers MD MD ma2 Shaista Ortiz, FORTINO RN 1 Estella Sandoval RN RN ld1 Corrections: (The following items were deleted from the chart) 13:03 13:03 SARS-COV-2 RT PCR+MOL.LAB.JOJO drawn and sent. ld1 EDMS
[2021-05-17] MEDS ORDERED: NA CHLORIDE 0.9% 1,000 ML ONE (13:12)
[2021-05-17 13:33] LABS: Absolute Lymphocytes (CBC) 1.2 K/uL (0.7-4.9); Basophils % 0.7 % (0-1.3); Hematocrit 54.9 % (39.6-49.0); Lymphocytes % 13.5 % (15.3-44.8); MPV 7.8 fL (7.6-11.3); RBC Red Blood Cell Count 5.45 M/uL (4.33-5.43)
[2021-05-17 13:35] LABS: Protime INR 0.92
[2021-05-17] MEDS ORDERED: LIDOCAINE 1% MPF 5 ML VIAL ONE (13:35)
[2021-05-17] MEDS ORDERED: propofoL 200 MG/20 ML VIAL IV ONE ×2 (13:35)
[2021-05-17] MEDS ORDERED: Ringers Lactate 1,000 ML IV ONE (13:36)
[2021-05-17 13:52] LABS: Albumin 4.2 g/dL (3.4-5.0); Bilirubin Total 1.1 mg/dL (0.2-1.0); Protein, Total 8.6 g/dL (6.4-8.2)
[2021-05-17 13:53] LABS: Potassium 3.9 mmol/L (3.5-5.1)
[2021-05-17 13:57] LABS: Bilirubin Direct 0.2 mg/dL (0-0.2)
--- NOTE | 2021-05-17 14:34 | ENDO RPT ---
[address], [address] EGD PROCEDURE REPORT EXAM DATE: 05/17/2021 PATIENT NAME: Raheem Stanley MR#: [id number] BIRTHDATE: 1970 ATTENDING: Harley Hall Dr STATUS: outpatient VETERINARY BACTERIOLOGIST: Yessenia Romero RN and Caren Mena RN INDICATIONS: The patient is a 50 yr old Male here for an EGD due to dysphagia and foreign body PROCEDURE PERFORMED: EGD with foreign body removal and EGD with biopsy MEDICATIONS: Per Anesthesia. TOPICAL ANESTHETIC: none CONSENT: The patient understands the risks and benefits of the procedure and understands that these risks include, but are not limited to: sedation, allergic reaction, infection, perforation and/or bleeding. Alternative means of evaluation and treatment include, among others: physical exam, x-rays, and/or surgical intervention. The patient elects to proceed with this endoscopic procedure. DESCRIPTION OF PROCEDURE: During intra-op preparation period all mechanical medical equipment was checked for proper function. Hand hygiene and appropriate measures for infection prevention was taken. Procedure, possible complications, and alternatives including but not limited to the possibility of bleeding, perforation, tear, infection, sepsis, need for surgery, need for blood transfusion, and anesthesia related complications were explained to the patient. After the risks, benefits and alternatives of the procedure were thoroughly explained, Informed consent was verified, confirmed and timeout was successfully executed by the treatment team. The patient was placed in the left lateral position. The patient was anesthetized with topical anesthesia. Through the anesthetized oropharyngeal area, the scope was passed without any difficulty. The EG-[id number] ([id number]) endoscope was introduced through the mouth and advanced to the second portion of the duodenum. Retroflexed views revealed a moderate sized hiatal hernia. The gastroscope was then slowly withdrawn and removed. A large meat (todd) bolus was found in the upper esophagus. Meat (todd) bolus removed by pushing into stomach. A mild stricture was found in the upper esophagus. Multiple erosions / esophagitis associated with mild stricture were found in the upper esophagus. A moderate sized hiatal hernia was found Moderate gastritis was found in the total stomach (greatest in the body). Multiple biopsies were obtained and sent to pathology. A 3 mm ulcer was found in the antrum. Multiple (2) erosions with surrounding edema were found in the antrum. Duodenitis was found in the bulb of the duodenum. ADVERSE EVENTS: There were no complications. IMPRESSIONS: 1. Large meat bolus (todd) in the upper esophagus, removed by pushing into stomach 2. 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 Multiple erosions / esophagitis associated with mild stricture in the upper esophagus 4. Moderate sized hiatal hernia 5. Moderate gastritis in the total stomach (greatest in the body), s/p biopsies 6. 3 mm clean-based ulcer in the pre-pyloric antrum 7. Multiple (2) erosions withsurrounding edema in the antrum 8. Duodenitis in the bulb of the duodenum RECOMMENDATIONS: 1. await biopsy results 2. acid suppression therapy REPEAT EXAM: Return in 2 week(s) for EGD with dilatation. Harley Hall Dr eSigned: Harley Hall Dr 05/17/2021 2:34 PM cc: CPT CODES: ICD9 CODES: PATIENT NAME: Raheem Stanley MR#: [id number]
[2021-05-17 15:05] VITALS: TEMP 97.6
[2021-05-17 15:06] VITALS: BP 151/96; O2SAT 98
--- NOTE | 2021-05-17 17:12 | CON ---
Date of Consultation: 05/17/2021 Reason For Consultation: Esophageal food impaction with dysphagia to solids, liquids, and saliva. History Of Present Illness: The patient is a 50-year-old male, history of HIV positivity si nce 1997, on medications since 2016. The patient presented to the hospital after eating todd yesterd ay and since that time, he has been able to swallow solids, liquids, or saliva even. The patient sta sruthi he ate todd yesterday and since that time he has had this problem of esophageal food impaction. Past Medical History: Significant for HIV since 1997 and on medications since 2016. Social History: Single, never , 1 son. Tobacco, half pack per day or less. He states alcoho l, beer about a six-pack a day. Family History: Mother and father alive and well. Does not know any family diseases. Review of Systems: The patient has dysphagia to solids, liquids, and saliva. He points to his Chet apple and his neck w here the problem is. He denies any heartburn, nausea, vomiting, abdominal pain, fever, chills, night sweats, heat or cold intolerance, muscle aches, joint aches, backaches, melena, hematochezia, masses , coffee-ground emesis, hematuria, dysuria, polydipsia, seizure, syncope, depression, anxiety. Physical Examination: Vital Signs: The patient is afebrile. Vital signs stable. General: He is a well-nourished, well-developed male, in no acute distress with tattoos all over the face including the eyelids and arms, torso, extremities. HEENT: Normocephalic, atraumatic. Anicteric. Pupils equal, round, and reactive to light. Extraocu lar movements are intact. Oropharynx clear. Had some missing teeth. Oropharynx is clear Neck: Supple. No masses. Respirations: Clear to auscultation bilaterally. Cardiac: Regular rate and rhythm. No gallops or rubs. Gastrointestinal: Positive bowel sounds. Soft, nontender, and nondistended. No hepatosplenomegaly. Extremities: No clubbing, cyanosis, or edema. 2+ pulses. Neuro: Alert and oriented x3, nonfocal. 5/5 motor. Sensation intact to light touch. Laboratory Data: The patient has a white count of 8.6, hemoglobin 19.1, hematocrit 54.9, MCV 100.6, platelet count 265, polys 74%, lymphocytes 14%, monocytes 11%, eosinophils 4%. PT of 10.6, INR 0.92. Sodium 142, potassium 3.9, chloride 108, bicarb 28, BUN 13, creatinine of 1.0, glucose 95, calcium 9.2. Total bilirubin 1.1, direct bilirubin 0.2, AST 32, ALT of 24, alkaline phosphatase 157, total p rotein 8.6, albumin 4.2, globulin 4.4. Lipase 41. COVID testing was negative. Imaging: No imaging. Impression: 1.Esophageal food impaction after eating todd yesterday. He has dysphagia to solids, liquids, and s aliva. 2.History of human immunodeficiency virus since 1998 diagnosis and on medications since 2016, says h is CD4 count is normal and human immunodeficiency virus is negative blood testing he reports. Recommendations: 1.EGD urgently. 2.Continue IV fluids. 3.Continue supportive care. 4.Continue HIV medications. This is after food bolus was removed. JUANITO/SILVIA Voice ID: [id number] Report ID: [id number]
--- OUTSIDE RECORDS SUMMARY | 2021-05-20 19:10 | XMS REPORT | Continuity of Care Document ---
:1970 Author Organization [facility] t Address [facility] [place] [address] Care Team Providers Name Role Phone RADIOLOGY Attending Clinician Unavailable Problems This patient has no known problems. Allergies, Adverse Reactions, Alerts Allergy Allergy Status Severity Reaction(s) Onset Inactive Treating Comm ents Source Name Type Date Date Clinician NO KNOWN Drug Active [facility] ALLERGIE Class [facility] Medications This patient has no known medications. Procedures This patient has no known procedures. Encounters Start End Encounter Admission Attending Care Care Encounter Source Date/Time Date/Time Type Type Clinicians Facility Department ID 2019-12-02 2019-12-02 Outpatient R RADIOLOGY [facility] [id number] [facility] 12:40:06 12:40:06 [facility] Results This patient has no known results.
== END 2021-05-17 15:40 | disposition home or self-care (01) | DRG 394 ==
LOC: ER 12:02 → ERHOLD 13:28
PROVIDERS: ADMIT Internal Medicine Gastroenterology; ATTEND Internal Medicine Gastroenterology
PROC: 0DB68ZX Excision of Stomach, Via Natural or Artificial Opening Endoscopic, Diagnostic (ICD-10-PCS; principal; 2021-05-17 13:00)
PROC: 0DD18ZX Extraction of Upper Esophagus, Via Natural or Artificial Opening Endoscopic, Diagnostic (ICD-10-PCS; 2021-05-17 13:00)
DX: T18.128A Food in esophagus causing other injury, initial encounter (principal); K22.10 Ulcer of esophagus without bleeding; K22.2 Esophageal obstruction; K44.9 Diaphragmatic hernia without obstruction or gangrene; K29.70 Gastritis, unspecified, without bleeding; K25.9 Gastric ulcer, unspecified as acute or chronic, without hemorrhage or perforation; K29.80 Duodenitis without bleeding; Z21 Asymptomatic human immunodeficiency virus [HIV] infection status; Z20.822 Contact with and (suspected) exposure to COVID-19
CPT/HCPCS: 36415; 80048; 80076; 83690; 85025; 85610; 88305; 88312; 99284; J2704; J7030; J7120; U0003

== ENCOUNTER 2021-05-25 01:11 | Emergency (ER) | payer SELFPAY ==
--- OUTSIDE RECORDS SUMMARY | 2021-05-25 01:13 | XMS REPORT | Continuity of Care Document ---
:1970 Author Organization [facility] t Address [address] [place] [address] Care Team Providers Name Role Phone RADIOLOGY Attending Clinician Unavailable Problems This patient has no known problems. Allergies, Adverse Reactions, Alerts Allergy Allergy Status Severity Reaction(s) Onset Inactive Treating Comm ents Source Name Type Date Date Clinician NO KNOWN Drug Active [facility] Medications This patient has no known medications. Procedures This patient has no known procedures. Encounters Start End Encounter Admission Attending Care Care Encounter Source Date/Time Date/Time Type Type Clinicians Facility Department ID 2019-12-02 2019-12-02 Outpatient R RADIOLOGY [facility] [id number] [facility] 12:40:06 12:40:06 [facility] Results This patient has no known results.
[2021-05-25] MEDS ORDERED: LIDOCAINE 1% W/EPI 1:100,000 MDV 50 ML VIAL ONE (01:29)
[2021-05-25] MEDS ORDERED: CEFAZOLIN SODIUM 1 GM/VIAL ONE (01:34)
[2021-05-25] MEDS ORDERED: TETANUS & DIPHTHERIA TOX,ADULT 0.5 ML VIAL ONE (01:34)
[2021-05-25] MEDS ORDERED: NA CHLORIDE 0.9% 1,000 ML ONE (01:34)
[2021-05-25] MEDS ORDERED: NA CHLORIDE 0.9% 100 ML ONE (01:34)
[2021-05-25 01:42] LABS: Protime INR 0.91
[2021-05-25 01:53] LABS: Absolute Lymphocytes (CBC) 1.5 K/uL (0.7-4.9); Basophils % 0.9 % (0-1.3); Hematocrit 49.2 % (39.6-49.0); RBC Red Blood Cell Count 4.91 M/uL (4.33-5.43)
[2021-05-25 02:02] LABS: Albumin 3.8 g/dL (3.4-5.0); Bilirubin Total 0.3 mg/dL (0.2-1.0); Potassium 3.3 mmol/L (3.5-5.1); Protein, Total 8.2 g/dL (6.4-8.2)
[2021-05-25] MEDS ORDERED: MORPHINE 4 MG/ML SYR ONE (03:09)
[2021-05-25] MEDS ORDERED: ONDANSETRON 4 MG/2 ML VIAL ONE (03:10)
[2021-05-25] MEDS ORDERED: KETOROLAC 30 MG/ML INJ ONE (03:10)
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
[2021-05-25 05:01] VITALS: BP 130/78; TEMP 97.8; O2SAT 99
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
== END 2021-05-25 04:25 | disposition home or self-care (01) ==
LOC: ER 01:11
PROC: 0JQG0ZZ Repair Right Lower Arm Subcutaneous Tissue and Fascia, Open Approach (ICD-10-PCS; principal; 2021-05-25)
DX: S51.011A Laceration without foreign body of right elbow, initial encounter (principal); S20.221A Contusion of right back wall of thorax, initial encounter; S20.211A Contusion of right front wall of thorax, initial encounter; R91.1 Solitary pulmonary nodule; V20.4XXA Motorcycle driver injured in collision with pedestrian or animal in traffic accident, initial encounter; Z21 Asymptomatic human immunodeficiency virus [HIV] infection status; F17.210 Nicotine dependence, cigarettes, uncomplicated
CPT/HCPCS: 36415; 70450; 71045; 71260; 72125; 74177; 80053; 80320; 82565; 83690; 85025; 85610; 86850; 86900; 86901; 90471; 90714; 96361; 96365; 96375; 99291; 99292; J0690; J2405; J7030; Q9967

== ENCOUNTER 2021-09-02 03:26 | Emergency (ER) | payer SELFPAY ==
--- OUTSIDE RECORDS SUMMARY | 2021-09-02 03:29 | XMS REPORT | Continuity of Care Document ---
:1970 Author Organization [facility] t Address [address] [place] [address] Care Team Providers Name Role Phone RADIOLOGY Attending Clinician Unavailable Problems This patient has no known problems. Allergies, Adverse Reactions, Alerts Allergy Allergy Status Severity Reaction(s) Onset Inactive Treating Comm ents Source Name Type Date Date Clinician NO KNOWN Drug Active [facility] ALLERGIE Class [facility] Medications This patient has no known medications. Procedures This patient has no known procedures. Encounters Start End Encounter Admission Attending Care Care Encounter Source Date/Time Date/Time Type Type Clinicians Facility Department ID 2019-12-02 2019-12-02 Outpatient R RADIOLOGY [facility] [id number] [facility] 12:40:06 12:40:06 [facility] Results Test Description Test Time Test Comments Results Result Comments Source CD4/CD8 LYMPHOCYTE ENUMERATION 2021-08-30 16:48:24 Test Item Value Reference Range Interpretation Comme nts ABSOLUTE LYMPHOCYTES (test code = 94062) 1931 PER UL 1876-0916 PERCENT CD4 (test code = 52451) 6.6 % 34.0-65.0 L ABSOLUTE CD4 (test code = 44217) 127 PER UL 520-1470 L PERCENT CD8 (test code = 36925) 70.8 % 13.0-38.0 H ABSOLUTE CD8 (test code = 88482) 1366 PER UL 205-920 H CD4/CD8 RATIO (test code = 78524) 0.09 0.92-3.41 L CBC W/AUTO DIFF WITH [id number] 05:49:45 Test Item Value Reference Range Interpretation Comments WBC (test code = 10.5 K/UL 3.5-11.0 1001) RBC (test code = 4.80 M/UL 4.50-6.10 1002) HEMOGLOBIN (test code 16.0 G/DL 13.5-17.0 = 1003) HEMATOCRIT (test code 45.7 % 40.0-51.0 = 1004) MCV (test code = 95.2 fL 80.0-99.0 1005) MCH (test code = 33.3 PG 25.0-33.0 H 1006) MCHC (test code = 35.0 G/DL 31.0-36.0 1007) RDW (test code = 12.5 % 11.5-15.0 1038) NEUTROPHILS (test 66.0 % code = 1008) LYMPHOCYTES (test 19.2 % code = 1010) MONOCYTES (test code 11.8 % = 1011) EOSINOPHILS (test 1.8 % code = 1012) BASOPHILS (test code 0.6 % = 1013) IMMATURE GRANULOCYTES 0.6 % (test code = 1036) NUCLEATED RBCS (test 0.0 /100 See_Comment [Autom ated code = 1065) WBC'S message] The sy stem which generated this result transmitted reference range : 0.0. The refere nce range was not u sed to interpret th is result as normal/abnormal . PLATELET COUNT (test 325 K/UL 130-400 code = 1015) ABSOLUTE NEUTROPHILS 6.91 K/UL 1.50-7.50 (test code = 1066) ABSOLUTE LYMPHOCYTES 2.01 K/UL 1.00-4.00 (test code = 1067) ABSOLUTE MONOCYTES 1.24 K/UL 0.20-1.00 H (test code = 1068) ABSOLUTE EOSINOPHILS 0.19 K/UL 0.00-0.50 (test code = 1040) ABSOLUTE BASOPHILS 0.06 K/UL 0.00-0.20 (test code = 1069) ABS IMMATURE 0.06 K/UL 0.00-0.10 GRANULOCYTES (test code = 1020) ABS NUCLEATED RBCS 0.00 K/UL 0.00-0.11 (test code = 66897) COMPREHENSIVE METABOLIC [id number] 04:24:01 Test Item Value Reference Range Interpretation Comments GLUCOSE (test code = 101 MG/DL 70-99 H 2216) BUN (test code = 10 MG/DL 6-20 2207) CREATININE (test 0.83 MG/DL 0.80-1.40 code = 2214) eGFR (2020 CKD-EPI) 107 >60 (test code = 30993) ML/MIN/1.73 CALC BUN/CREAT (test 12 RATIO 6-28 code = 2235) SODIUM (test code = 137 MEQ/L 745-884 1816) POTASSIUM (test code 3.7 MEQ/L 3.5-5.4 = 2227) CHLORIDE (test code 94 MEQ/L 95-107 L = 2214) CARBON DIOXIDE (test 27 MEQ/L 19-31 code = 2206) CALCIUM (test code = 9.1 MG/DL 8.5-10.5 2208) PROTEIN, TOTAL (test 7.1 G/DL 6.1-8.3 code = 222) ALBUMIN (test code = 4.4 G/DL 3.5-5.2 2200) CALC GLOBULIN (test 2.7 G/DL 1.9-3.7 code = 224) CALC A/G RATIO (test 1.6 RATIO 1.0-2.6 code = 223) BILIRUBIN, TOTAL <0.2 MG/DL See_Comment [Automated message] (test code = 220) The [employer] which generated this result transmitted ref erence range: <=1.2. T he reference range was not used to int erpret this result as normal/abnormal . ALKALINE PHOSPHATASE 135 U/L 40-118 H (test code = 2203) AST (test code = 27 U/L 9-50 2217) ALT (test code = 14 U/L 5-50 UNLE SS 2218) OTHERWISE INDIC ATED, ALL TESTING PER [facility], [place] [place] [address] LABORATORY DIRE CTOR: DEYANIRA ONOFRE M.D. CLIA NUMBER [id number] [facility] ACCREDITATION N O. [id number]
[2021-09-02] MEDS ORDERED: TETANUS & DIPHTHERIA TOX,ADULT 0.5 ML VIAL ONE (03:56)
[2021-09-02 04:22] LABS: Absolute Lymphocytes (CBC) 2.4 K/uL (0.7-4.9); Hematocrit 44.9 % (39.6-49.0); Lymphocytes % 29.7 % (15.3-44.8); MPV 7.5 fL (7.6-11.3); RBC Red Blood Cell Count 4.69 M/uL (4.33-5.43)
[2021-09-02 04:26] LABS: Protime INR 1.04
[2021-09-02 04:33] LABS: ALT/SGPT 33 U/L (12-78); AST/SGOT 39 U/L (15-37); Albumin 3.6 g/dL (3.4-5.0); Alkaline Phosphatase 133 U/L (45-117); BUN Blood Urea Nitrogen 7 mg/dL (7-18); Bicarbonate 24 mmol/L (21-32); Bilirubin Direct 0.1 mg/dL (0-0.2); Bilirubin Total 0.4 mg/dL (0.2-1.0); Glucose Level 109 mg/dL (74-106); Potassium 3.1 mmol/L (3.5-5.1); Sodium Level 131 mmol/L (136-145)
[2021-09-02] MEDS ORDERED: MORPHINE 4 MG/ML SYR ONE (04:50)
[2021-09-02] MEDS ORDERED: NA CHLORIDE 0.9% 1,000 ML ONE (04:50)
[2021-09-02] MEDS ORDERED: ONDANSETRON 4 MG/2 ML VIAL ONE (04:50)
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
[2021-09-02 06:39] VITALS: TEMP 97.9
[2021-09-02 06:50] VITALS: BP 130/88; O2SAT 98
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
== END 2021-09-02 06:31 | disposition home or self-care (01) ==
LOC: ER 03:26
DX: S60.512A Abrasion of left hand, initial encounter (principal); S60.511A Abrasion of right hand, initial encounter; S80.212A Abrasion, left knee, initial encounter; S80.211A Abrasion, right knee, initial encounter; S60.222A Contusion of left hand, initial encounter; S60.221A Contusion of right hand, initial encounter; F10.129 Alcohol abuse with intoxication, unspecified; V29.40XA Motorcycle driver injured in collision with unspecified motor vehicles in traffic accident, initial encounter; Z21 Asymptomatic human immunodeficiency virus [HIV] infection status; Z23 Encounter for immunization
CPT/HCPCS: 36415; 70450; 71260; 72125; 74177; 80048; 80076; 80320; 82565; 85025; 85610; 85730; 86850; 86900; 86901; 90471; 90714; 96361; 96374; 96375; 99285; J2405; J7030; Q9967